=== PATIENT | female | born 1980 | race Caucasian/White ===

== ENCOUNTER 2017-05-11 11:51 | Emergency (ER) | payer SELFPAY ==
[2017-05-11 12:09] VITALS: BP 133/79; TEMP 98; O2SAT 100
[2017-05-11] MEDS ORDERED: LIDOCAINE 2% W/ EPINEPHRINE 20 ML VIAL INJ ONE (12:21)
--- NOTE | 2017-05-11 12:29 | ED.PDOC ---
History of Present Illness - General Chief Complaint: Skin/Abrasion/Tear Stated Complaint: abscess in right axilla Time Seen by Provider: 05/11/17 12:10 Source: patient Exam Limitations: no limitations - History of Present Illness Timing/Duration: 1 week Severity: moderate Improving Factors: nothing Worsening Factors: nothing Associated Symptoms: denies symptoms Allergies/Adverse Reactions: Allergies NO KNOWN ALLERGY Allergy (Verified 05/11/17 12:09) Home Medications: Ambulatory Orders Sulfa/Trimeth 800/160 (Ds) Tab [Bactrim DS Tab] 1 ea PO BID #14 tab 05/11/17 Review of Systems - Review of Systems Constitutional: States: no symptoms reported EENTM: States: no symptoms reported Respiratory: States: no symptoms reported Cardiology: States: no symptoms reported Gastrointestinal/Abdominal: States: no symptoms reported Genitourinary: States: no symptoms reported Musculoskeletal: States: no symptoms reported Skin: States: see HPI Neurological: States: no symptoms reported Endocrine: States: no symptoms reported All other Systems: No Change from Baseline Past Medical History (General) - Patient Medical History Hx Stroke: No Hx Congestive Heart Failure: No Hx Diabetes: No - Vaccination History Hx Tetanus, Diphtheria Vaccination: Yes Hx Influenza Vaccination: No - Social History Hx Tobacco Use: Yes - Female History Patient is a Female of Child Bearing Age (10 -59 yrs old): Yes Family Medical History - Family History Mother Family History: Unknown Living Status: Unknown Physical Exam - Physical Exam General Appearance: Alert, Comfortable, No apparent distress Eye Exam: bilateral normal Ears, Nose, Throat: hearing grossly normal, normal ENT inspection Neck: full range of motion Respiratory: no respiratory distress, no accessory muscle use Cardiovascular/Chest: normal peripheral pulses, no edema Peripheral Pulses: radial,right: 2+, radial,left: 2+ Rectal Exam: deferred Back Exam: normal inspection Extremity: normal range of motion, no pedal edema, normal capillary refill 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 Mild extending cellulitis. Progress - Progress Progress: 05/11/17 12:26 the patient is a 37-year-old female presenting secondary to hidradenitis suppurativa of the right axilla. one of the spots has turned into an abscess. After risk and benefits were explained the patient agreed to I&D. Area was cleaned with alcohol. 1 cc of lidocaine with epinephrine was used for local anesthetic. A #15 blade scalpel was used for making a 1.2 cm incision for drainage. The wound is draining well. The patient will be placed on Bactrim twice daily for the next 10 days. She needs to wash twice daily with antibacterial soap. No packing is required. She should follow up with a general surgeon once the infection is gone to see if there is any residual underlying cyst that needs exercising to prevent recurrence. ER warnings were given. Departure - Departure Clinical Impression: Abscess, Hidradenitis axillaris Disposition: Discharge to Home or Self Care Condition: Fair Departure Forms: ED Discharge - Pt. Copy, Patient Portal Self Enrollment Instructions: DI for Skin Abscess Diet: regular diet Activity: increase activity as tolerated Prescriptions: Sulfa/Trimeth 800/160 (Ds) Tab [Bactrim DS Tab] 1 ea PO BID #14 tab Home Medications: Ambulatory Orders Sulfa/Trimeth 800/160 (Ds) Tab [Bactrim DS Tab] 1 ea PO BID #14 tab 05/11/17 Additional Instructions: the patient is a 37-year-old female presenting secondary to hidradenitis suppurativa of the right axilla. one of the spots has turned into an abscess. After risk and benefits were explained the patient agreed to I&D. Area was cleaned with alcohol. 1 cc of lidocaine with epinephrine was used for local anesthetic. A #15 blade scalpel was used for making a 1.2 cm incision for drainage. The wound is draining well. The patient will be placed on Bactrim twice daily for the next 10 days. She needs to wash twice daily with antibacterial soap. No packing is required. She should follow up with a general surgeon once the infection is gone to see if there is any residual underlying cyst that needs exercising to prevent recurrence. ER warnings were given.
[2017-05-11] MEDS ORDERED: traMADol HCL 50 MG TAB PO ONE (12:39)
== END 2017-05-11 12:47 | disposition home or self-care (01) ==
LOC: ER 11:51
DX: L02.411 Cutaneous abscess of right axilla (principal); L73.2 Hidradenitis suppurativa